=== PATIENT | male | born 1960 | race Caucasian/White ===

== ENCOUNTER 2017-02-25 10:00 | Emergency (ER) | payer OTHER ==
[2017-02-25 10:05] VITALS: TEMP 97.5
--- NOTE | 2017-02-25 10:54 | EDPHY ---
H & P Time Seen by Provider: 02/25/17 10:34 HPI/ROS: Chief complaint. Low back pain HPI. A 57-year-old male presents emergency department with 3 day history of low back pain to the left hip. No radiation down into the leg. No leg weakness. No bowel or bladder symptoms. Certain positions from going from lying to standing and in and out of a car hurt. Precipitating factor was the patient was doing a lot a yd work and raking and lifting and twisting and then gradually has developed low back pain. He did have a spinal fusion from L5-S1 at age 20. He has had similar symptoms of this previously. He has been seen at [facility] in the past for this and given physical therapy exercises which he tells me he has not done. He has been using ibuprofen with inadequate relief. Otherwise no fever. ROS Constitutional. no fever/chills, no weakness Eyes. no problems with vision ENT. no sore throat, no nasal drainage Cardiovascular. no chest pain Respiratory. no shortness of breath, no cough Abdominal. no abdominal pain, no nausea/vomiting, no diarrhea . no problems urinating MS. Low back pain Skin. no rash Lymph. no swollen glands Neuro. no headache, no dizziness, no difficulty walking or with speech Past Medical/Surgical History: Spinal fusion, cardiomyopathy, hemochromatosis Social History: , nonsmoker, no alcohol Smoking Status: Former smoker Physical Exam: General Appearance: Alert pleasant well-developed male mild to moderate distress. Vital signs are stable Eyes: Pupils equal and round no pallor or injection. ENT, Mouth: Mucous membranes are moist. Respiratory: There are no retractions, lungs are clear to auscultation. Cardiovascular: Regular rate and rhythm. Gastrointestinal: Abdomen is soft and nontender, no masses, bowel sounds normal. Neurological: Awake and alert, sensory and motor exams grossly normal. Straight leg raising negative to 30 degrees bilaterally. Deep tender reflexes slightly decrease the left patella. Great toe strength is normal. Sensation is normal. Skin: Warm and dry, no rashes. Musculoskeletal: Neck is supple nontender. Tender to the left side of L3-4 area. No surface trauma or findings. No tenderness over the spinous processes. Extremities symmetrical, full range of motion. Psychiatric: Patient is oriented X 3, there is no agitation. Constitutional: Initial Vital Signs Temperature (C) 36.4 C 02/25/17 10:03 Heart Rate 60 02/25/17 10:03 Respiratory Rate 18 02/25/17 10:03 Blood Pressure 124/78 H 02/25/17 10:03 O2 Sat (%) 92 02/25/17 10:03 O2 Delivery Mode Room Air Allergies/Adverse Reactions: No Known Allergies Allergy (Unverified 03/29/14 06:14) Home Medications: Medication Instructions Recorded Lisinopril [Zestril 10 mg (RX)] 10 mg PO DAILY 03/29/14 Nebivolol HCl [Bystolic 5 mg (RX)] 5 mg PO DAILY 03/29/14 Diazepam [Valium] 5 mg PO Q6PRN PRN #10 tab 02/25/17 Lidocaine 5% [Lidoderm 5% Patch 2 ea TD DAILY #10 patch 02/25/17 (*)] oxyCODONE/APAP 5/325 [Percocet 1 tab PO Q4-6PRN PRN #10 tab 02/25/17 5/325] Medical Decision Making Procedures: Lidocaine patch. Percocet and Valium orally. ED Course/Re-evaluation: Re-evaluation patient remains stable. He and I discussed treatment plan including criteria for return importance of follow-up and further evaluation. He expresses understanding and agreement Differential Diagnosis: This is likely musculoskeletal. I have considered cauda equina syndrome but he has no leg weakness, radiculopathy, bowel or bladder symptoms. He has had previous low back surgery. - Data Points Medications Given: Discontinued Medications Diazepam (Valium) 5 mg PO EDNOW ONE Stop: 02/25/17 11:05 Last Admin: 02/25/17 11:10 Dose: 5 mg Lidocaine (Lidoderm 5%) 1 ea TD EDNOW ONE Stop: 02/25/17 11:05 Last Admin: 02/25/17 11:10 Dose: 1 ea Oxycodone/Acetaminophen (Percocet 5/325) 1 tab PO EDNOW ONE Stop: 02/25/17 11:08 Last Admin: 02/25/17 11:10 Dose: 1 tab Departure - Departure Disposition: Home, Routine, Self-Care Clinical Impression: Low back pain Qualifiers: Chronicity: acute Back pain laterality: left Sciatica presence: without sciatica Qualified Code(s): M54.5 - Low back pain Condition: Good Instructions: Acute Low Back Pain (ED), Lower Back Exercises (ED) Additional Instructions: Heat to low back. Lidocaine patches that you may also be able to purchased at the grocery store. Ibuprofen 600 mg every 6 hr for discomfort. Percocet in addition. Valium as muscle relaxer. Return for worsening back pain, leg weakness, bowel or bladder symptoms. Begin your low back exercises. Follow up with [facility] next week. Referrals: JEWELS BAXTER MD [Other] - As per Instructions Prescriptions: Diazepam [Valium] 5 mg PO Q6PRN PRN #10 tab PRN Reason: For Muscle Spasms Lidocaine 5% [Lidoderm 5% Patch (*)] 2 ea TD DAILY #10 patch oxyCODONE/APAP 5/325 [Percocet 5/325] 1 tab PO Q4-6PRN PRN #10 tab PRN Reason: Pain, Moderate
[2017-02-25] MEDS ORDERED: DIAZEPAM 5 MG TAB PO ONE (11:04)
[2017-02-25] MEDS ORDERED: LIDOCAINE 5% 1 EA PATCH TD ONE (11:04)
[2017-02-25] MEDS ORDERED: OXYCODONE/APAP 5/325 TAB PO ONE (11:07)
[2017-02-25 11:44] VITALS: BP 122/84; PULSE 54; RESP 16; O2SAT 94
[2017-02-25] MEDS ORDERED: PATCH REMOVAL 1 EA PATCH TD SCH (21:00)
== END 2017-02-25 11:43 | disposition home or self-care (01) ==
DX: M54.5 Low back pain (principal); Z87.891 Personal history of nicotine dependence